=== PATIENT | male | born 1945 | race Caucasian/White ===

== ENCOUNTER 2022-07-28 12:59 | Outpatient (CLI) | payer MEDICARE ==
[~2022-07-28 12:59] MED LIST: Iopamidol 300 61% 100 ML VIAL FS ONE
== END 2022-07-28 13:00 | disposition home or self-care (01) ==
LOC: CSHCT 12:59
PROVIDERS: ATTEND Urology
DX: N20.0 Calculus of kidney (principal); E83.52 Hypercalcemia; R31.29 Other microscopic hematuria; N28.1 Cyst of kidney, acquired; N40.0 Benign prostatic hyperplasia without lower urinary tract symptoms; K76.89 Other specified diseases of liver
CPT/HCPCS: 74178